=== PATIENT | female | born 1995 | race American Indian/Alaskan Native ===

== ENCOUNTER 2020-11-12 07:43 | Emergency (ER) | payer MEDICAID ==
[2020-11-12 09:30] LABS: Bacteria,Urine 1+ /HPF (Negative); Bilirubin,Urine NEG (Negative); Blood,Urine MOD (Negative); Color,Urine Yellow (Yellow); Mucus,Urine FEW /HPF; Protein,Urine <15 mg/dL mg/dL (Negative); Urobilinogen,Urine < 2.0 mg/dL (<2.0)
[2020-11-12 10:32] LABS: Basophils % (Auto) 0.3 % (0.0-1.8); Eosinophils # (Auto) 0.2 K/mm3 (0.0-0.4); Eosinophils % (Auto) 1.6 % (0.0-4.3); Hematocrit 38.9 % (30.3-42.9); Hemoglobin 12.9 gm/dl (10.1-14.3); Lymphocytes # (Auto) 1.5 K/mm3 (1.2-5.4); Lymphocytes % (Auto) 13.4 % (13.4-35.0); Mean Corpuscular HGB Conc 33 % (30-34); Mean Corpuscular Volume 89 fl (79-97); Monocytes # (Auto) 0.7 K/mm3 (0.0-0.8); Monocytes % (Auto) 5.9 % (0.0-7.3); Platelet Count 212 K/mm3 (140-440); Red Blood Count 4.36 M/mm3 (3.65-5.03); Red Cell Distribution Width 12.8 % (13.2-15.2)
--- NOTE | 2020-11-12 16:55 | Emergency Department Report ---
ED HPI - General Chief complaint: Vaginal Bleeding Stated complaint: 16WKS PREG/BLEEDING Time Seen by Provider: 11/12/20 16:45 Source: patient Mode of arrival: Ambulatory Limitations: No Limitations - History of Present Illness Initial comments: The patient was evaluated in the emergency department for symptoms described in the history of present illness. He/she was evaluated in the context of the global COVID-19 pandemic, which necessitated consideration that the patient might be at risk for infection with the virus that causes COVID-19. Institutional protocols and algorithms that pertain to the evaluation of patients at risk for COVID-19 are in a state of rapid change based on information released by regulatory bodies including the CDC and federal and state organizations. These policies and algorithms were followed during the baltazar castañeda's care in the emergency department. Please note that these policies, procedures and recommendations changed on a rapid basis. 24-year-old -[place] female presents to the emergency room complaining of vaginal spotting when she wipes. Patient states is been going on since Sunday. Patient reports that she is followed by women and last saw them with an ultrasound on Sunday. Patient denies any cramping or pelvic pain. Patient is 1 para 0. She reports her last menstrual period was the end of June 2020. She denies any vaginal discharge. She states that her [employer] informed her that she did not have a urinary tract infection when they checked her urine on Sunday. MD Complaint: vaginal bleeding Onset/Timin -: days(s) Severity scale (0 -10): 0 Associated symptoms: denies other symptoms Vaginal bleeding: light :: Yes Number of weeks : 16 OB History - Current : no complications Last menstrual period: 07/21/20 Pre- care: followed by OB ([facility]) - Related Data : 1 Allergies Allergy/AdvReac Type Severity Reaction Status Date / Time No Known Allergies Allergy Unverified 11/12/20 08:45 ED Review of Systems ROS: Stated complaint: 16WKS PREG/BLEEDING Other details as noted in HPI Comment: All other systems reviewed and negative ED Past Medical Hx - Past Medical History Previous Medical History?: No - Surgical History Past Surgical History?: No ED Physical Exam - General Limitations: No Limitations General appearance: alert, in no apparent distress - Head Head exam: Present: atraumatic, normocephalic - Eye Eye exam: Present: normal appearance - ENT ENT exam: Present: mucous membranes moist - Neck Neck exam: Present: normal inspection - Back Exam Back exam: Present: normal inspection - Neurological Exam Neurological exam: Present: alert, oriented X3 - Psychiatric Psychiatric exam: Present: normal affect, normal mood - Skin Skin exam: Present: warm, dry, intact, normal color. Absent: rash ED Course Vital Signs 11/12/20 11/12/20 08:47 17:25 Temperature 98.1 F 98.2 F Pulse Rate 80 64 Respiratory 16 18 Rate Blood Pressure 104/61 Blood Pressure 111/64 [Right] O2 Sat by Pulse 98 100 Oximetry ED Medical Decision Making - Lab Data Result diagrams: 11/12/20 09:31 - Radiology Data Radiology results: report reviewed Patient Name: ABHAY CENTENO Gender: Female Date of : 1995 Referring Provider: LINDSAY RITTER Organization: [facility] Accession Number: [id number] Requested Date: November 12, 2020 16:51 Report Status: Final Requested Procedure: 1 Procedure Description: US OB >= 14 weeks Fetus Modality: US Findings Reporting MD: Da Lund Dictation Time: November 12, 2020 17:40 Metal Trimmer: Not available Radio/Tv Technician Date: ULTRASOUND OBSTETRIC Indication: Vaginal spotting x 5 days Findings: There is a single intrauterine . BPD = 3.6 cm = 17 weeks, 1 day(s). Head circumference = 12.83 cm = 16 weeks, 4 day(s). Femur length = 2.55 cm = 17 weeks, 5 day(s). Overall estimated sonographic age = 17 weeks, 1 day(s). heart rate is 167 beats per minute. position is variable. Cervix appears closed. movement is present. Placenta is anterior and grade 0 . Maternal adnexa not well visualized from overlying bowel gas. Impression: 1. Single living intrauterine with estimated sonographic age of 17 weeks, 1 day(s). Signer Name: Da Lund MD Signed: 11/12/2020 5:40 PM Workstation Name: [place] [employer] - Medical Decision Making 24-year-old -[place] female presents to the emergency room complaining of vaginal spotting when she wipes. Patient states is been going on since Sunday. Patient reports that she is followed by [facility] and last saw them with an ultrasound on Sunday. Patient denies any cramping or pelvic pain. Patient is 1 para 0. She reports her last menstrual period was the end of June 2020. She denies any vaginal discharge. She states that her [employer] informed her that she did not have a urinary tract infection when they checked [place] [address]. Ultrasound has been ordered. Critical care attestation.: If time is entered above; I have spent that time in minutes in the direct care of this critically ill patient, excluding procedure time. ED Disposition Clinical Impression: Vaginal spotting Disposition: DC- TO HOME OR SELFCARE Is pt being admited?: No Does the pt Need Aspirin: No Condition: Undetermined Additional Instructions: Ultrasound shows a 17-week 1 day fetus. No abnormalities. Follow-up with your primary [employer]. Referrals: LESLIE LEIGH MD [Primary Care Provider] - 3-5 Days Forms: Work/School Release Form(ED)
[2020-11-12 17:29] VITALS: BP 104/61
--- NOTE | 2020-11-12 18:44 | Ultrasound Report ---
ULTRASOUND OBSTETRIC Indication: Vaginal spotting x 5 days Findings: There is a single intrauterine . BPD = 3.6 cm = 17 weeks, 1 day(s). Head circumference = 12.83 cm = 16 weeks, 4 day(s). Femur length = 2.55 cm = 17 weeks, 5 day(s). Overall estimated sonographic age = 17 weeks, 1 day(s). heart rate is 167 beats per minute. position is variable. Cervix appears closed. movement is present. Placenta is anterior and grade 0 . Maternal adnexa not well visualized from overlying bowel gas. Impression: 1. Single living intrauterine with estimated sonographic age of 17 weeks, 1 day(s). Signer Name: Da Lund MD Signed: 11/12/2020 6:40 PM Workstation Name: [id number]
== END 2020-11-12 19:38 | disposition home or self-care (01) ==
LOC: ED 07:43
DX: O20.8 Other hemorrhage in early pregnancy (principal); Z3A.17 17 weeks gestation of pregnancy
CPT/HCPCS: 36415; 76805; 81001; 84702; 84703; 85025; 86900; 86901